=== PATIENT | female | born 1955 | race Caucasian/White ===

== ENCOUNTER 2017-07-13 15:16 | Emergency (ER) | payer BC ==
[2017-07-13 15:23] VITALS: BP 158/88
[2017-07-13] MEDS ORDERED: Sodium Chloride 0.9% 10 ML Syringe FLUSH PRN (15:39)
[2017-07-13] MEDS ORDERED: LORazepam 2 MG/ML MDV IVPUSH ONE (15:51)
--- NOTE | 2017-07-13 18:34 | EDM.PDOC ---
ED HPI GENERAL MEDICAL PROBLEM - General Chief Complaint: Neuro Symptoms/Deficits Stated Complaint: [facility] Time Seen by Provider: 07/13/17 15:21 Source of Information: Reports: Patient, EMS, Family History Limitations: Reports: No Limitations - History of Present Illness INITIAL COMMENTS - FREE TEXT/NARRATIVE: The patient was at [employer] and she had a grand mal seizure lasting about 5 to 7 minutes. She was incontinent of urine. She was post ictal when she arrived but she could answer all of my questions. She was in town for her grand daughter's [employer] ball game. She has a history of seizures. She is on phenitoin 200mg BID. She has not been sleeping well due to a cough. She took her last dose of zithromax today. She did not drink any alcohol. She has no fever, chills, chest pain or shortness of breath. She has no abdominal pain, nausea or vomiting. Onset: Sudden Duration: Minutes: Location: Reports: Generalized Context: Reports: Activity (Eating) Associated Symptoms: Reports: Cough. Denies: Chest Pain, Fever/Chills, Nausea/ Vomiting, Shortness of Breath Treatments [employer]: Reports: IV/IO, Oxygen - Related Data Allergies Allergy/AdvReac Type Severity Reaction Status Date / Time carbamazepine [From Tegretol] Allergy Rash Verified 07/13/17 15:24 Home Meds: Home Meds Multivitamin [Daily Multiple Vitamin] 1 tab PO DAILY 07/13/17 [History] Phenytoin Sodium Extended [Dilantin] 200 mg PO BID 07/13/17 [History] Thyroid,Pork [Sleepy Eye Thyroid] 90 mg PO DAILY 07/13/17 [History] Past Medical History HEENT History: Reports: Impaired Vision Neurological History: Reports: Seizure Endocrine/Metabolic History: Reports: Hypothyroidism - Past Surgical History Musculoskeletal Surgical History: Reports: Other (See Below) Other Musculoskeletal Surgeries/Procedures:: bunionectomy to bilateral feet Social & Family History - Family History Family Medical History: Noncontributory - Tobacco Use Smoking Status *Q: Never Smoker - Caffeine Use Caffeine Use: Reports: Coffee, Tea - Recreational Drug Use Recreational Drug Use: No ED ROS GENERAL - Review of Systems Review Of Systems: See Below Constitutional: Reports: No Symptoms HEENT: Reports: No Symptoms Respiratory: Reports: Cough. Denies: Shortness of Breath Cardiovascular: Reports: No Symptoms Endocrine: Reports: No Symptoms GI/Abdominal: Reports: No Symptoms : Reports: No Symptoms Musculoskeletal: Reports: No Symptoms Skin: Reports: No Symptoms Neurological: Reports: Seizure. Denies: Headache ED EXAM, NEURO - Physical Exam Exam: See Below Exam Limited By: No Limitations General Appearance: Alert, No Apparent Distress Ears: Normal External Exam Nose: Normal Inspection Head Exam: Atraumatic, Normocephalic Neck: Normal Inspection Respiratory/Chest: No Respiratory Distress, Lungs Clear, Normal Breath Sounds Cardiovascular: Regular Rate, Rhythm, No Edema, No Murmur GI/Abdominal: Soft, Non-Tender, No Organomegaly, No Mass Course - Vital Signs Last Recorded V/S: Last Vital Signs Temp 96.5 F 07/13/17 15:16 Pulse 108 H 07/13/17 15:16 Resp 18 07/13/17 15:16 BP 158/88 H 07/13/17 15:16 Pulse Ox 94 L 07/13/17 15:16 - Orders/Labs/Meds Orders: Active Orders 24 hr Category Date Time Status Accu Check [Blood Glucose Check, Bedside] [RC] ONETIME Care 07/13/17 17:36 Active Cardiac Monitoring [RC] . DIRECTED Care 07/13/17 15:39 Active Peripheral IV Care [RC] . DIRECTED Care 07/13/17 15:39 Active Chest 1V Frontal [CR] Stat Exams 07/13/17 15:39 Taken Head wo Cont [CT] Stat Exams 07/13/17 15:39 Taken Sodium Chloride 0.9% [Saline Flush] Med 07/13/17 15:39 Active 10 ml FLUSH ASDIRECTED PRN Peripheral IV Insertion Adult [OM.PC] Stat Oth 07/13/17 15:39 Ordered Medication Orders Sodium Chloride (Saline Flush) 10 ml FLUSH ASDIRECTED PRN PRN Reason: Keep Vein Open Last Admin: 07/13/17 16:25 Dose: 10 ml Labs: Laboratory Tests 07/13/17 07/13/17 07/13/17 Range/Units 15:55 15:55 17:40 WBC 9.50 (3.98-10.04) K/mm3 RBC 4.05 (3.98-5.22) M/mm3 Hgb 12.4 (11.2-15.7) gm/L Hct 36.9 (34.1-44.9) % MCV 91.1 (79.4-94.8) fl MCH 30.6 (25.6-32.2) pg MCHC 33.6 (32.2-35.5) g/dl RDW Std Deviation 44.3 (36.4-46.3) fL Plt Count 428 H (182-369) K/mm3 MPV 8.5 L (9.4-12.3) fl Neut % (Auto) 71.5 H (34.0-71.1) % Lymph % (Auto) 16.8 L (19.3-51.7) % Kane % (Auto) 8.4 (4.7-12.5) % Eos % (Auto) 1.9 (0.7-5.8) Baso % (Auto) 0.5 (0.1-1.2) % Neut # (Auto) 6.78 H (1.56-6.13) K/mm3 Lymph # (Auto) 1.60 (1.18-3.74) K/mm3 Kane # (Auto) 0.80 H (0.24-0.36) K/mm3 Eos # (Auto) 0.18 (0.04-0.36) K/mm3 Baso # (Auto) 0.05 (0.01-0.08) K/mm3 Sodium 135 L (136-145) mEq/L Potassium 3.4 L (3.5-5.1) mEq/L Chloride 99 (98-107) mEq/L Carbon Dioxide 23 (21-32) mEq/L Anion Gap 16.4 H (5-15) BUN 10 (7-18) mg/dL Creatinine 0.9 (0.55-1.02) mg/dL Est Cr Clr Drug Dosing 51.26 mL/min Estimated GFR (MDRD) > 60 (>60) mL/min BUN/Creatinine Ratio 11.1 L (14-18) Glucose 235 H (80-115) mg/dL POC Glucose 113 (80-115) mg/dL Calcium 8.7 (8.5-10.1) mg/dL Magnesium 1.8 (1.8-2.4) mg/dl Total Bilirubin 0.2 (0.2-1.0) mg/dL AST 33 (15-37) U/L ALT 50 (14-59) U/L Alkaline Phosphatase 75 (46-116) U/L Total Protein 6.7 (6.4-8.2) g/dl Albumin 3.2 L (3.4-5.0) g/dl Globulin 3.5 gm/dL Albumin/Globulin Ratio 0.9 L (1-2) Meds: Medications Generic Name Dose Route Start Last Admin Trade Name Freq PRN Reason Stop Dose Admin Sodium Chloride 10 ml 07/13/17 15:39 07/13/17 16:25 Saline Flush FLUSH 10 ml ASDIRECTED PRN Administration Keep Vein Open Discontinued Medications Generic Name Dose Route Start Last Admin Trade Name Freq PRN Reason Stop Dose Admin Lorazepam 1 mg 07/13/17 15:51 07/13/17 16:22 Ativan IVPUSH 07/13/17 15:52 1 mg ONETIME ONE Administration - Re-Assessments/Exams Free Text/Narrative Re-Assessment/Exam: 07/13/17 18:34 I ordered an IV, ativan 1mg IV, labs, CXR and CT of her brain. Her CXR does not show any infiltrated. Her CT shows nothing acute. Her CBC looks good. Her Na is low at 135. Her K was low at 3.4. Her anion gap was elevated at 16.4. Her glucose is elevated at 235. She feels better now. She is not diabetic. This could just be a stress response from the seizure with the high blood sugar. I did an accu check and it was back to normal at 113. She will call her doctor tomorrow and see if he wants any changes to her phenitoin. Departure - Departure Time of Disposition: 18:40 Disposition: Home, Self-Care 01 Condition: Good Clinical Impression: Seizure, Bronchitis - Discharge Information Forms: ED Department Discharge Additional Instructions: Get plenty of rest the next few days. Call your doctor in the morning and see if he wants to change your phenition. Pleas return if you are worse. - My Orders Last 24 Hours: My Active Orders 07/13/17 15:39 Cardiac Monitoring [RC] . DIRECTED Peripheral IV Care [RC] . DIRECTED Chest 1V Frontal [CR] Stat Head wo Cont [CT] Stat Sodium Chloride 0.9% [Saline Flush] 10 ml FLUSH ASDIRECTED PRN Peripheral IV Insertion Adult [OM.PC] Stat 07/13/17 17:36 Accu Check [Blood Glucose Check, Bedside] [RC] ONETIME - Assessment/Plan Last 24 Hours: My Active Orders 07/13/17 15:39 Cardiac Monitoring [RC] . DIRECTED Peripheral IV Care [RC] . DIRECTED Chest 1V Frontal [CR] Stat Head wo Cont [CT] Stat Sodium Chloride 0.9% [Saline Flush] 10 ml FLUSH ASDIRECTED PRN Peripheral IV Insertion Adult [OM.PC] Stat 07/13/17 17:36 Accu Check [Blood Glucose Check, Bedside] [RC] ONETIME
--- NOTE | 2017-07-14 12:25 | CR ---
Chest: Frontal view of the chest was obtained. Comparison: Previous no prior chest x-ray. Heart size and mediastinum are normal. Lungs are clear. Scoliosis is present within the spine. Bony structures are osteopenic. Impression: 1. Incidental findings. Nothing acute is appreciated on frontal chest x-ray. Diagnostic code #2
--- NOTE | 2017-07-14 12:25 | CT ---
Head CT Technique: Multiple axial sections through the brain were obtained. Intravenous contrast was not utilized. Comparison: No previous intracranial imaging. Findings: Ventricles along with basal cisterns and sulci over the convexities are within normal limits for the patient's age. No abnormal parenchymal densities are seen. No evidence of intracranial hemorrhage. No midline shift or mass effect is seen. Bone window settings were reviewed which show no discrete calvarial abnormality. Visualized sinuses are clear. Impression: 1. No abnormality identified on noncontrast head CT exam. Diagnostic code #1 Agree with preliminary report issued by [facility] ([facility] preliminary report dictated on 07/13/17, 5:22 PM Central Time)
== END 2017-07-13 18:45 | disposition home or self-care (01) ==
LOC: JD.ED 15:16
DX: R56.9 Unspecified convulsions (principal); J40 Bronchitis, not specified as acute or chronic; E03.9 Hypothyroidism, unspecified; Z88.8 Allergy status to other drugs, medicaments and biological substances; Z98.890 Other specified postprocedural states
CPT/HCPCS: 36415; 70450; 71010; 80053; 80185; 82962; 83735; 85025; 96374; 99285; J2060; J7050; 99283